=== PATIENT | male | born 1990 | race Caucasian/White ===

== ENCOUNTER 2018-06-20 01:46 | Emergency (ER) | payer BC ==
[2018-06-20] MEDS ORDERED: NORMAL SALINE 1000 ML 1,000 ML IV ONE ×2 (01:57)
[2018-06-20] MEDS ORDERED: PROMETHAZINE HCL INJ 25 MG/1 ML VIAL IM ONE (01:57)
[2018-06-20] MEDS ORDERED: FENTANYL CITRATE INJ/PF 100 MCG/2 ML AMPUL IV ONE (01:57)
[2018-06-20 02:23] LABS: HEMATOCRIT 43.6 % (37.9-51.0); HEMOGLOBIN 15.2 g/dL (13.5-17.0); MEAN CORPUSCULAR HEMOGLOBIN 32.2 pg (27.0-33.4); MEAN CORPUSCULAR HGB CONC 34.8 g/dL (32.0-36.0); MEAN CORPUSCULAR VOLUME 93 fl (80-97); PLATELET COUNT 191 10^3/uL (150-450); RED BLOOD COUNT 4.71 10^6/uL (4.35-5.55); RED CELL DISTRIBUTION WIDTH 13.1 % (11.5-14.0); WHITE BLOOD COUNT 12.5 10^3/uL (4.0-10.5)
[2018-06-20 02:29] LABS: ALANINE AMINOTRANSFERASE 42 U/L (21-72); ALKALINE PHOSPHATASE 87 U/L (38-126); ANION GAP 13 (5-19); ASPARTATE AMINO TRANSFERASE 23 U/L (17-59); BILIRUBIN,DIRECT 0.1 mg/dL (0.0-0.4); BILIRUBIN,TOTAL 1.2 mg/dL (0.2-1.3); BLOOD UREA NITROGEN 24 mg/dL (7-20); CARBON DIOXIDE 25 mmol/L (22-30); CHLORIDE 105 mmol/L (98-107); GLUCOSE 162 mg/dL (75-110); LIPASE 46.7 U/L (23-300); POTASSIUM 4.3 mmol/L (3.6-5.0); SODIUM 142.6 mmol/L (137-145); TOTAL PROTEIN 6.3 g/dL (6.3-8.2)
[2018-06-20 02:48] LABS: ABSOLUTE LYMPHOCYTES# (MANUAL) 0.8 10^3/uL (0.5-4.7); ABSOLUTE MONOCYTES # (MANUAL) 0.3 10^3/uL (0.1-1.4); ABSOLUTE NEUTROPHILS# (MANUAL) 11.5 10^3/uL (1.7-8.2); BAND NEUTROPHILS % (MANUAL) 1 % (3-5); BASOPHILS % (MANUAL) 0 % (0-2); EOSINOPHILS % (MANUAL) 0 % (0-6); LYMPHOCYTES % (MANUAL) 6 % (13-45); MONOCYTES % (MANUAL) 2 % (3-13); PLATELET COMMENT ADEQUATE; PLATELET GIANT PRESENT; PLATELET LARGE PRESENT; SEGMENTED NEUTROPHILS % (MAN) 91 % (42-78); TOTAL CELLS COUNTED 100; TOXIC GRANULATION SLIGHT; TOXIC VACUOLATION PRESENT
[2018-06-20] MEDS ORDERED: SUCRALFATE 1 GM TABLET PO ONE (02:59)
[2018-06-20] MEDS ORDERED: FAMOTIDINE 20 MG TABLET PO ONE (02:59)
[2018-06-20 03:38] LABS: APPEARANCE,URINE SLIGHTLY-CLOUDY; BILIRUBIN,URINE NEGATIVE (NEGATIVE); GLUCOSE, URINE NEGATIVE (NEGATIVE); KETONES,URINE TRACE mg/dL (NEGATIVE); LEUKOCYTE ESTERASE,URINE NEGATIVE (NEGATIVE); NITRITE,URINE NEGATIVE (NEGATIVE); PROTEIN,URINE 30 mg/dL (NEGATIVE); URINE SPECIFIC GRAVITY 1.031; UROBILINOGEN,URINE NEGATIVE mg/dL (<2.0)
[2018-06-20 03:39] LABS: COLOR,URINE DARK YELLOW
[2018-06-20] MEDS ORDERED: SULFAMETHOXAZOLE/TRIMETHOPRIM 800-160 MG TABLET PO ONE (05:12)
[2018-06-20] MEDS ORDERED: PROMETHAZINE HCL 25 MG TABLET PO ONE (05:14)
--- NOTE | 2018-06-20 05:19 | ER Document Report ---
ED GI/ - General Chief Complaint: Abdominal Pain Stated Complaint: ABDOMINAL PAIN Time Seen by Provider: 06/20/18 01:51 Primary Care Provider: DEWAYNE MCNULTY MD [Primary Care Provider] - Follow up as needed Notes: Patient is a 27 year old male that comes to the Emergency Department by EMS for chief complaint of vomiting, diarrhea, and abdominal pain. Symptoms started earlier today, patient states that he has had persistent diarrhea and vomiting. Nonbloody. Denies fever but does report chills. Denies recent travel, recent antibiotics. He did recently eat some raw food several days ago. He reports pain mostly in the mid upper abdomen. Past medical history of gallstone removal and partial gallbladder removal reportedly on preference, denies any daily medications, denies recreational drugs. Denies frequent alcohol. TRAVEL OUTSIDE OF THE [place] IN LAST 30 DAYS: No - Related Data Allergies/Adverse Reactions: No Known Allergies Allergy (Verified 08/17/14 14:18) Past Medical History - General Information source: Patient - Social History Smoking Status: Never Smoker Chew tobacco use (# tins/day): No Frequency of alcohol use: Occasional Drug Abuse: None Lives with: Family Family History: Reviewed & Not Pertinent Patient has suicidal ideation: No Patient has homicidal ideation: No Renal/ Medical History: Denies: Hx Peritoneal Dialysis Past Surgical History: Reports: Hx Cholecystectomy - Immunizations Hx Diphtheria, Pertussis, Tetanus Vaccination: Yes Review of Systems - Review of Systems Constitutional: No symptoms reported EENT: No symptoms reported Cardiovascular: No symptoms reported Respiratory: No symptoms reported Gastrointestinal: See HPI Genitourinary: No symptoms reported Male Genitourinary: No symptoms reported Musculoskeletal: No symptoms reported Skin: No symptoms reported Hematologic/Lymphatic: No symptoms reported Neurological/Psychological: No symptoms reported Physical Exam - Vital signs Vitals: Temp Pulse Resp BP Pulse Ox 99.6 F 107 H 20 108/64 100 06/20/18 01:46 06/20/18 01:46 06/20/18 01:46 06/20/18 01:46 06/20/18 01:46 - Notes Notes: GENERAL: Alert, interacts well. No acute distress. HEAD: Normocephalic, atraumatic. EYES: Pupils equal, round, and reactive to light. Extraocular movements intact. ENT: Oral mucosa dry, tongue midline. Oropharynx unremarkable. Airway patent. Nares patent, no nasal septal hematoma, TM's intact. NECK: Full range of motion. Supple. Trachea midline. LUNGS: Clear to auscultation bilaterally, no wheezes, rales, or rhonchi. No respiratory distress. HEART: Borderline tachycardia, normal rhythm, no murmur ABDOMEN: Mild generalized upper abdominal tenderness, lower abdomen also mildly tender but nonspecific as well, no guarding, no rigidity, no distention. GENITOURINARY: No external concerning findings noted. EXTREMITIES: Moves all 4 extremities spontaneously. No edema, normal radial and dorsalis pedis pulses bilaterally. No cyanosis. BACK: no cervical, thoracic, lumbar midline tenderness. No saddle anesthesia, normal distal neurovascular exam. NEUROLOGICAL: Alert and oriented x3. Normal speech. [cranial nerves II through XII grossly intact]. PSYCH: Normal affect, normal mood. SKIN: Warm, dry, normal turgor. No rashes or lesions noted. Course - Re-evaluation Re-evalutation: Physical examination showing generalized abdominal tenderness, no rigidity or guarding, patient is slightly tachycardic and appears dehydrated but otherwise is nontoxic in appearance. He is alert and talkative. CBC shows leukocytosis with elevation of neutrophils but no bandemia. This is nonspecific given patient's vomiting and diarrhea. Chemistry generally unremarkable. Urinalysis only suggest dehydration. No hematuria. Patient able to provide a stool sample, shows many white blood cells, C. difficile negative. Culture pending. Because of patient's many episodes of d iarrhea, many white blood cells, discussed with patient and decision was made to treat him for possible inflammatory diarrhea of bacterial cause, especially with his recent raw food ingestion. 06/20/18 05:10 Patient reevaluated again, kept down p.o. medications without any difficulty, drink fluids without any difficulty. Heart rate in the 90s at bedside. Will treat at home, discussed follow-up, discussed return precautions in detail. Patient states satisfaction and agreement. - Vital Signs Vital signs: Temp Pulse Resp BP Pulse Ox 98.1 F 107 H 20 117/34 L 98 06/20/18 05:54 06/20/18 01:46 06/20/18 05:02 06/20/18 05:02 06/20/18 05:02 - Laboratory Result Diagrams: 06/20/18 02:00 06/20/18 02:00 Laboratory results interpreted by me: 06/20/18 06/20/18 06/20/18 02:00 02:00 03:05 WBC 12.5 H Seg Neuts % (Manual) 91 H Band Neutrophils % 1 L Lymphocytes % (Manual) 6 L Monocytes % (Manual) 2 L Abs Neuts (Manual) 11.5 H BUN 24 H Glucose 162 H Urine Protein 30 H Urine Ketones TRACE H Stool for White Cells 06/20/18 03:05 WBC Seg Neuts % (Manual) Band Neutrophils % Lymphocytes % (Manual) Monocytes % (Manual) Abs Neuts (Manual) BUN Glucose Urine Protein Urine Ketones Stool for White Cells MANY H Discharge - Discharge Clinical Impression: Vomiting and diarrhea, Dehydration Condition: Stable Disposition: HOME, SELF-CARE Additional Instructions: Your workup shows dehydration and it is suspicious for inflammatory diarrhea. As a result you have been treated with antibiotic Bactrim, take as directed. Ta ke Phenergan for nausea, Pepcid to help recovery, start with clear fluids, progress to bland food. Rest. Symptoms should resolve with time. We have a culture pending in our lab. Follow-up with primary care. Return if you worsen including uncontrolled vomiting, passing out, severe abdominal pain, or any other concerning or worsening symptoms. Prescriptions: Famotidine [Pepcid 20 mg Tablet] 20 mg PO BID #20 tablet Promethazine HCl [Phenergan 25 mg Tablet] 25 mg PO Q6H PRN #20 tablet PRN Reason: Sulfamethoxazole/Trimethoprim [Bactrim Ds Tablet] 1 each PO BID #14 tablet Forms: Return to Work Referrals: DEWAYNE MCNULTY MD [Primary Care Provider] - Follow up as needed
[2018-06-20 05:25] VITALS: BP 117/34
== END 2018-06-20 05:54 | disposition home or self-care (01) ==
LOC: ER 01:46
DX: E86.0 Dehydration (principal); R11.10 Vomiting, unspecified; R19.7 Diarrhea, unspecified; R10.9 Unspecified abdominal pain
CPT/HCPCS: 99284; 96372; 96361; 96374; 36415; 87045; 89055; 87205; 83690; 85025; 80053; 81001; 87493; J3010; J2550; J7030